=== PATIENT | male | born 1995 | race Caucasian/White ===

== ENCOUNTER 2024-04-13 17:45 | Emergency (ER) | payer SELFPAY ==
[2024-04-13 17:57] VITALS: BP 123/76; PULSE 67; RESP 16; TEMP 36.9; O2SAT 98; BMI 20.9
[2024-04-13] MEDS: fluorescein 1 mg Strip EYE-BOTH (18:18)
[2024-04-13] MEDS: neomycin-poly-dex Op 5 mL Btl 2 DROP EYE-LEFT (18:46)
[2024-04-13 18:50] VITALS: BP 107/63; PULSE 81; RESP 16; O2SAT 97
--- NOTE | 2024-04-13 23:22 | W.ED.EYEPROB ---
HPI - Eye Problem General: Chief complaint: Eye Problems Stated complaint: Something in eye Time Seen by Provider: 04/13/24 18:04 Source: patient Mode of arrival: ambulatory Limitations: no limitations History of Present Illness: Patient is a 28-year-old male who presents the emergency department complaining of left eye pain. States that earlier this morning he was working and got a piece of charcoal in his eye, he has flushed it numerous times but still has the sensation of foreign body. No other symptoms reported at this time. chief complaint: eye pain Onset (ago): hour(s) Onset description: sudden Duration: constant Location: left eye Eye Symptoms: foreign body sensation Place: work Mechanism: direct trauma Severity: moderate If Pain, Quality: aching Associated symptoms: Denies fever(s), headache(s), nausea, neck pain or vomiting Related Data Previous Rx's Medication Instructions Recorded [id number] 3.5 1 drp ophthalmic (eye) Q12H #5 mL 04/13/24 mg/mL-10,000 unit/mL-0.1% eye drops (Maxitrol) Allergies Allergy/AdvReac Type Severity Reaction Status Date / Time No Known Allergies Allergy Verified 04/13/24 18:01 Review of Systems General: Reports: 10 or more systems reviewed and unremarkable except in HPI and below Const: Denies: fever(s), chills or fatigue Eyes: Reports: eye discomfort (Trauma); Denies: change in vision or blurry vision ENMT: Denies: throat pain, ear or mastoid pain or nasal discharge Card: Denies: chest pain, palpitations, swelling of feet/ankles or lightheadedness Resp: Denies: dyspnea, productive cough or wheezing GI: Denies: abdominal pain, nausea, vomiting, diarrhea or constipation : Denies: flank pain, difficulty urinating, dysuria or urinary frequency Musc: Denies: neck pain, back pain or joint pain Skin/Breast: Denies: rash Neuro: Denies: headache(s), numbness in extremities or weakness in extremities Physical Exam Const: COMMON NORMALS: no acute distress and no limitations GENERAL APPEARANCE: cooperative, comfortable and well developed ORIENTATION/CONSCIOUSNESS: Yes awake OTHER: Patient's entire face covered in charcoal HENMT: COMMON NORMALS: normocephalic, atraumatic and hearing grossly normal bilaterally HEAD & SCALP: normocephalic and atraumatic Eye: COMMON NORMALS: Equal, round and reactive pupils present and EOMs intact bilaterally VISUAL ACUITY: Yes acuity normal ALIGNMENT: Yes alignment normal PERIORBITAL: periorbital findings abnormal positive bilateral (Covered in charcoal) CONJUNCTIVA: Yes conjunctival abnormal positive left conjunctival injection PUPIL: Yes Equal, round and reactive pupils present SLIT LAMP EXAM: Yes slit lamp exam performed with fluorescein and Yes cornea Cornea details: linear corneal abrasion OTHER: No evidence of foreign body Neck/C-Spine: COMMON NORMALS: full ROM, supple and no JVD Resp: COMMON NORMALS: normal respiratory effort, No retractions, No use of accessory muscles and clear to auscultation bilaterally AUSCULTATION: clear to auscultation bilaterally Cardio: COMMON NORMALS: no JVD, regular rate, regular rhythm, No clicks present (Cardio), No murmurs present (Cardio) and No rub (Cardio) RATE: regular rate RHYTHM: regular rhythm Extremity: COMMON NORMALS: normal to inspection, full ROM and capillary refill normal Skin: COMMON NORMALS: no rashes or lesions noted GENERAL SKIN EXAM: no rashes or lesions noted Course Vital Signs: Vital signs: Vital Signs Temperature 98.4 F 04/13/24 17:57 Pulse Rate 81 04/13/24 18:50 Respiratory Rate 16 04/13/24 18:50 Blood Pressure 107/63 04/13/24 18:50 Pulse Oximetry 97 04/13/24 18:50 MDM - Eye Problem Medical Decision Making Fluorescein center left eye did show evidence of a corneal abrasion that we will treat with Maxitrol. There was no evidence of foreign body while directly examining it. He reports significant relief of pain after the tetracaine. He is told to follow-up with primary care with any further complaints. No radiology studies performed this visit Discharge Plan Discharge Patient Disposition: Home Clinical Impression: Corneal abrasion Condition: Stable Prescriptions: New neomycin-polymyxin B-dexameth [Maxitrol] 3.5mg/mL-10,000 unit/mL-0.1 % drops,suspension 1 drp ophthalmic (eye) Q12H Qty: 5 0RF Discharge Orders: Discharge ED (Routine); Ordered 04/13/24 Ordered By: Serg Patino Patient Instructions: Corneal Abrasion (ED) Activity Restrictions/Additional Instructions: Maxitrol. Frequent eye flushes. Follow-up with primary care or ophthalmology. Return with any new or worsening. Coding Level of Care Code ED [facility] [place] for Natalia Clark
== END 2024-04-13 18:51 | disposition home or self-care (01) ==
PROVIDERS: Emergency Provider Physician Assistant
DX: S05.02XA Injury of conjunctiva and corneal abrasion without foreign body, left eye, initial encounter (principal)
CPT/HCPCS: 99283